=== PATIENT | female | born 1995 | race Caucasian/White ===

== ENCOUNTER 2025-09-26 14:24 | Inpatient (IN) | payer OTHER ==
[~2025-09-26] VITALS: Ht 160 cm; Wt 67.1 kg
[2025-09-26 13:28] VITALS: BP 105/66
[2025-09-26] MEDS ORDERED: TERBUTALINE SULFATE 1 MG/ML AMPUL SUBCUTANEO SCH (14:45)
[2025-09-26] MEDS ORDERED: AMPICILLIN SODIUM 2,000 MG VIAL IV ONE (14:45)
[2025-09-26] MEDS ORDERED: PRENATAL TABLE1 EAC4 (15:25)
[2025-09-26] MEDS ORDERED: RINGERS SOLUTION,LACTATED 1,000 ML IV SCH (15:30)
[2025-09-26 16:09] VITALS: BP 92/57
[2025-09-26 16:21] LABS: BASO % 0.3 % (0.1-1.2); EOS # 0.07 (0.04-0.54); EOS % 0.7 % (0.7-7.0); LYMPH # 0.88 (1.18-3.74); LYMPH % 9.1 % (19.3-53.1); MEAN PLATELET VOLUME 10.40 fl (9.4-12.4); MONO # 0.61 (0.24-0.82); MONO % 6.3 % (4.7-12.5); NEUT # 7.99 (1.56-6.13); NEUT % 83.2 % (34.0-71.1); RED CELL DISTRIBUTION WIDTH 11.6 % (11.6-14.4)
[2025-09-26 16:56] LABS: URINE APPEARANCE Clear; URINE BILIRRUBIN Negative (NEGATIVE); URINE BLOOD Negative; URINE COLOR Yellow; URINE GLUCOSE Negative (NEGATIVE); URINE LEUKOCYTE Negative; URINE NITRATE Negative; URINE PROTEIN Negative (NEGATIVE); URINE UROBILINOGEN 0.2 E.U./dl
[2025-09-26 17:00] LABS: URINE BACTERIA 17.9 uL (0.0-1933); URINE EPITHELIAL CELLS 3.9 uL (0.0-38.8); URINE RBC 6.0 uL (0.0-20.8); URINE WBC 15.3 uL (0.0-23.2)
[2025-09-26 17:10] LABS: URINE CAST 0.00 uL (0.0-1.40); URINE KETONE 40 (NEGATIVE)
[2025-09-26 17:18] VITALS: BP 105/66
[2025-09-26 17:29] LABS: URINE YEAST NEGATIVE /hpf
[2025-09-26] MEDS ORDERED: MAGNESIUM SULFATE IN WATER 500 ML IV SCH (17:45)
[2025-09-26] MEDS ORDERED: BETAMETHASONE ACETATE,SOD PHOS 30 MG/5 ML ML IM ONE (17:45)
[2025-09-26] MEDS ORDERED: MAGNESIUM SULFATE IN WATER 4 GM/100 ML PIGGYBACK IV ONE (17:45)
[2025-09-26 19:24] VITALS: BP 119/68
[2025-09-26] MEDS ORDERED: AMPICILLIN SODIUM 1,000 MG VIAL IV SCH (20:00)
[2025-09-26 23:16] VITALS: BP 108/66
[2025-09-27 04:00] VITALS: BP 92/50
[2025-09-27 07:14] VITALS: BP 101/64
[2025-09-27 11:03] VITALS: BP 93/60
[2025-09-27 15:30] VITALS: BP 96/57
[2025-09-27] MEDS ORDERED: NIFEDIPINE 30 MG TAB.SA.OSM PO NR (17:00)
[2025-09-27] MEDS ORDERED: BETAMETHASONE ACETATE,SOD PHOS 30 MG/5 ML ML IM ONE (18:00)
[2025-09-27 20:00] VITALS: BP 110/60
[2025-09-27 23:06] VITALS: BP 95/53
[2025-09-28 04:04] VITALS: BP 96/44
[2025-09-28 06:07] VITALS: BP 86/50; O2SAT 96
[2025-09-28] MEDS ORDERED: NIFEDIPINE ER30 M1 PO (06:43)
[2025-09-28] MEDS ORDERED: NIFEDIPINE 30 MG TAB.SA.OSM PO SCH (09:00)
== END 2025-09-28 08:55 | disposition home or self-care (01) | DRG 833 ==
LOC: OBS/DEL 14:24 → LDR 17:28
PROVIDERS: Obstetrics & Gynecology; ADMIT Specialist; ATTEND Specialist
PROC: 4A1HXCZ Monitoring of Products of Conception, Cardiac Rate, External Approach (ICD-10-PCS; principal; 2025-09-26)
PROC: BY4FZZZ Ultrasonography of Third Trimester, Single Fetus (ICD-10-PCS; 2025-09-26)
PROC: BU4CZZZ Ultrasonography of Uterus and Ovaries (ICD-10-PCS; 2025-09-26)
DX: O42.113 Preterm premature rupture of membranes, onset of labor more than 24 hours following rupture, third trimester (principal); Z3A.30 30 weeks gestation of pregnancy

== ENCOUNTER 2025-11-05 10:08 | Inpatient (IN) | payer OTHER ==
[~2025-11-05] VITALS: Ht 160 cm; Wt 3.2 kg
[~2025-11-05 10:08] MED LIST: NIFEDIPINE ER30 M1 PO; PRENATAL TABLE1 EAC4
[2025-11-16 03:38] VITALS: BP 121/73
[2025-11-16 03:54] VITALS: BP 121/73
[2025-11-16] MEDS ORDERED: OXYTOCIN 1,000 ML IV ONE (05:45)
[2025-11-16] MEDS ORDERED: RINGERS SOLUTION,LACTATED 1,000 ML IV SCH (06:00)
[2025-11-16 06:09] LABS: URINE APPEARANCE Clear; URINE BILIRRUBIN Negative (NEGATIVE); URINE BLOOD Small; URINE COLOR Yellow; URINE GLUCOSE Negative (NEGATIVE); URINE KETONE Negative (NEGATIVE); URINE LEUKOCYTE Negative; URINE NITRATE Negative; URINE UROBILINOGEN 1.0 E.U./dl
[2025-11-16 06:12] LABS: URINE BACTERIA 571.9 uL (0.0-1933); URINE EPITHELIAL CELLS 20.3 uL (0.0-38.8); URINE RBC 139.9 uL (0.0-20.8); URINE WBC 14.7 uL (0.0-23.2)
[2025-11-16] MEDS ORDERED: PROMETHAZINE HCL 25 MG/ML AMPUL IV PRN (06:15)
[2025-11-16] MEDS ORDERED: MORPHINE SULFATE 4 MG/ML VIAL IV PRN ×2 (06:15→13:00)
[2025-11-16 06:17] LABS: URINE CAST 0.42 uL (0.0-1.40); URINE PROTEIN 100 (NEGATIVE)
[2025-11-16 06:44] LABS: BASO % 0.3 % (0.1-1.2); EOS # 0.07 (0.04-0.54); EOS % 0.7 % (0.7-7.0); LYMPH # 1.01 (1.18-3.74); LYMPH % 10.2 % (19.3-53.1); MEAN PLATELET VOLUME 11.60 fl (9.4-12.4); MONO # 0.72 (0.24-0.82); MONO % 7.3 % (4.7-12.5); NEUT # 7.96 (1.56-6.13); NEUT % 80.7 % (34.0-71.1); RED CELL DISTRIBUTION WIDTH 13.5 % (11.6-14.4)
[2025-11-16 06:53] LABS: INR < 0.93
[2025-11-16 07:08] LABS: ALT/SGPT 28.0 U/L (12-78); AST/SGOT 20.0 U/L (15-37); BILIRUBIN TOTAL 0.29 mg/dL (0.3-1.2); BUN CREA RATIO 23.0 (7.0-25.0); CREATININE SERUM 0.52 mg/dL (0.55-1.02); GFR 140.41; GLOBULINA 3.3 G/DL (2.4-3.5); GLUCOSE FASTING 97.0 mg/dL (65-100); OSMOLALITY SERUM 285.0 MOSM/KG (275-295)
[2025-11-16 07:20] VITALS: BP 128/78
[2025-11-16] MEDS ORDERED: CEFAZOLIN SODIUM 1,000 MG VIAL IV ONE (09:45)
[2025-11-16] MEDS ORDERED: TERBUTALINE SULFATE 1 MG/ML AMPUL IV ONE (10:30)
[2025-11-16] MEDS ORDERED: PNV,CALCIUM 72/IRON/FOLIC ACID 1 TAB TABLET PO SCH (12:53)
[2025-11-16] MEDS ORDERED: KETOROLAC TROMETHAMINE 30 MG VIAL IV NR (13:00)
[2025-11-16] MEDS ORDERED: ONDANSETRON HCL 2 MG/ML VIAL IV PRN (13:00)
[2025-11-16] MEDS ORDERED: ACETAMINOPHEN 325 MG TABLET PO SCH (14:00)
[2025-11-16] MEDS ORDERED: CARBOPROST TROMETHAMINE 250 MCG/ML AMPUL IM SCH (14:15)
[2025-11-16] MEDS ORDERED: ERYTHROMYCIN BASE OPHT 1GM EACH TUBE OP SCH (14:15)
[2025-11-16] MEDS ORDERED: OXYTOCIN 10 UNITS/ML VIAL IV SCH (14:15)
[2025-11-16 14:39] LABS: BASO % 0.2 % (0.1-1.2); EOS # 0.01 (0.04-0.54); EOS % 0.0 % (0.7-7.0); LYMPH # 0.65 (1.18-3.74); LYMPH % 2.5 % (19.3-53.1); MEAN PLATELET VOLUME 11.70 fl (9.4-12.4); MONO # 1.16 (0.24-0.82); MONO % 4.4 % (4.7-12.5); NEUT # 24.35 (1.56-6.13); NEUT % 92.1 % (34.0-71.1); RED CELL DISTRIBUTION WIDTH 13.7 % (11.6-14.4)
[2025-11-16] MEDS ORDERED: DOCUSATE SODIUM 100MG CAP PO SCH (17:00)
[2025-11-16 19:02] VITALS: BP 108/64
[2025-11-16] MEDS ORDERED: KETOROLAC TROMETHAMINE 30 MG VIAL IV SCH (20:00)
[2025-11-17 01:34] VITALS: BP 94/56
[2025-11-17 05:01] VITALS: BP 104/66
[2025-11-17 08:00] VITALS: BP 106/66
[2025-11-17 16:34] VITALS: BP 121/80
[2025-11-17 16:59] LABS: BASO % 0.1 % (0.1-1.2); EOS # 0.05 (0.04-0.54); EOS % 0.4 % (0.7-7.0); LYMPH # 1.00 (1.18-3.74); LYMPH % 7.1 % (19.3-53.1); MEAN PLATELET VOLUME 10.50 fl (9.4-12.4); MONO # 0.65 (0.24-0.82); MONO % 4.6 % (4.7-12.5); NEUT # 12.18 (1.56-6.13); NEUT % 86.6 % (34.0-71.1); RED CELL DISTRIBUTION WIDTH 14.0 % (11.6-14.4)
[2025-11-18 01:54] VITALS: BP 109/70
[2025-11-18 06:25] LABS: BASO % 0.2 % (0.1-1.2); EOS # 0.07 (0.04-0.54); EOS % 0.4 % (0.7-7.0); LYMPH # 1.15 (1.18-3.74); LYMPH % 6.3 % (19.3-53.1); MEAN PLATELET VOLUME 10.40 fl (9.4-12.4); MONO # 0.85 (0.24-0.82); MONO % 4.6 % (4.7-12.5); NEUT # 15.98 (1.56-6.13); NEUT % 87.4 % (34.0-71.1); RED CELL DISTRIBUTION WIDTH 14.5 % (11.6-14.4)
[2025-11-18 08:51] VITALS: BP 123/80
[2025-11-18] MEDS ORDERED: PRENATE ENHANC1 EACH PO (13:30)
== END 2025-11-18 13:53 | disposition home or self-care (01) | DRG 788 ==
LOC: O/R 11-16 05:37 → LDR 11-16 05:37 → OB/GYN 11-16 05:37 → O/R 11-16 11:29 → OB/GYN 11-16 14:16
PROVIDERS: General Practice; ADMIT Specialist; ATTEND Specialist
PROC: 4A1HXCZ Monitoring of Products of Conception, Cardiac Rate, External Approach (ICD-10-PCS; 2025-11-16)
PROC: 10D00Z1 Extraction of Products of Conception, Low, Open Approach (ICD-10-PCS; principal; 2025-11-16 11:45)
DX: O36.8330 Maternal care for abnormalities of the fetal heart rate or rhythm, third trimester, not applicable or unspecified (principal); O76 Abnormality in fetal heart rate and rhythm complicating labor and delivery; Z3A.38 38 weeks gestation of pregnancy; Z37.0 Single live birth